=== PATIENT | female | born 1990 | race Caucasian/White ===

== ENCOUNTER 2021-02-06 10:05 | Emergency (ER) | payer OTHER, SELFPAY ==
[~2021-02-06] VITALS: Ht 160 cm; Wt 68.0 kg
[2021-02-06 10:05] VITALS: BP_SYST 103
--- NOTE | 2021-02-06 10:05 | NUR ---
BROUGHT TO TRIAGE TENT, TRIAGED. AWAITING ER BED
--- NOTE | 2021-02-06 10:35 | NUR ---
DR SYED AT BEDSIDE FOR EVALUATION
--- NOTE | 2021-02-06 10:40 | NUR ---
PT STATES SHE TESTED + FOR COVID A FEW DAYS AGO, SEEN LAST NIGHT AT [facility] BUT STATES THEY DID NOTHING BUT GIVE HER LEVAQUIN AND ANTI NAUSEA MEDS. PT STATES SHE IS DEHYDRATED BUT ACTIVELY DRINKING GATORADE. DENIES VOMITING TODAY. PT STATES SHE FEELS WEAK. PT STATES SHE IS NOT VACCINATED, SPOUSE BEING EVALUATED IN ER ALSO.
--- NOTE | 2021-02-06 12:02 | NUR ---
DR SYED OUT TO TRIAGE TENT TO SPEAK WITH PT.
[2021-02-06] MEDS ORDERED: PRED20TA PO (12:12)
[2021-02-06] MEDS ORDERED: DEXAMETHASONE SOD PHOSPHATE 10 MG/ML VIAL IM ONE (12:15)
--- NOTE | 2021-02-06 12:15 | NUR ---
Patient given written and verbal discharge instructions and verbalizes understanding. ER MD discussed with patient the results and treatment provided. Patient in stable condition. ID arm band removed. Rx of given. Patient educated on pain management and to follow up with PMD. Pain Scale0/10 Opportunity for questions provided and answered. Medication side effect fact sheet provided.
--- NOTE | 2021-02-06 12:30 | NUR ---
Patient given written and verbal discharge instructions and verbalizes understanding. Dr. Kimani STOUT MD discussed with patient the results and treatment provided. Patient in stable condition. ID arm band removed. Rx per MD. Patient educated on pain management and to follow up with PMD. Pain Scale 0/10. Opportunity for questions provided and answered. Medication side effect fact sheet provided.
[2021-02-06 12:38] VITALS: BP_SYST 103
== END 2021-02-06 12:30 | disposition home or self-care (01) ==
LOC: SED 10:05
DX: U07.1 COVID-19 (principal); J12.82 Pneumonia due to coronavirus disease 2019
CPT/HCPCS: 71045; 96372; 99283; J1100

== ENCOUNTER 2021-02-08 08:09 | Inpatient (IN) | payer OTHER, SELFPAY ==
[~2021-02-08] VITALS: Ht 160 cm; Wt 74.8 kg
[~2021-02-08 08:09] MED LIST: PRED20TA PO
[2021-02-08 08:26] VITALS: BP_SYST 114
[2021-02-08] MEDS ORDERED: cefTRIAXone 1 GM in D5W 50 ML IV ONE (08:45)
[2021-02-08] MEDS ORDERED: AZITHROMYCIN 500 MG in NS 250 ML IV ONE (08:45)
[2021-02-08] MEDS ORDERED: ACETAMINOPHEN 325 MG TABLET PO ONE (08:45)
[2021-02-08] MEDS ORDERED: ONDANSETRON HCL 4 MG/2 ML VIAL IVP ONE (08:45)
[2021-02-08] MEDS ORDERED: KETOROLAC TROMETHAMINE 30 MG VIAL IVP ONE (08:45)
[2021-02-08] MEDS ORDERED: DEXAMETHASONE SOD PHOSPHATE 10 MG/ML VIAL IVP ONE (08:45)
[2021-02-08] MEDS ORDERED: cefTRIAXone 1 GM VIAL ONE ×2 (08:50→13:03)
[2021-02-08] MEDS ORDERED: AZITHROMYCIN 500 MG/VIAL (ZITHROMAX) IV ONE (08:51)
[2021-02-08 08:54] LABS: BASOPHILS % (AUTO) 0.1 % (0.0-2.0); HEMATOCRIT 41.5 % (36-48); HEMOGLOBIN 14.2 g/dL (12.0-16.0); LYMPHOCYTES # (AUTO) 0.8 K/uL (1.0-5.5); LYMPHOCYTES % (AUTO) 11.2 % (20.5-51.5); MEAN CORPUSCULAR HEMOGLOBIN 30 pg (27-31); MEAN CORPUSCULAR HGB CONC 34 % (32-36); MEAN CORPUSCULAR VOLUME 87 fL (79.0-98.0); MONOCYTES # (AUTO) 0.2 K/uL (0.0-1.0); MONOCYTES % (AUTO) 3.2 % (1.7-9.3); NEUTROPHILS # (AUTO) 5.9 K/uL (1.8-7.7); NEUTROPHILS % (AUTO) 85.5 % (40.0-70.0); PLATELET COUNT (AUTO) 205 K/uL (130-430); WHITE BLOOD COUNT (AUTO) 6.9 K/uL (4.8-10.8)
[2021-02-08 09:03] LABS: CALCIUM 8.6 mg/dL (8.4-11.0); CREATININE 0.76 mg/dL (0.55-1.30); POTASSIUM 3.2 mmol/L (3.5-5.1)
[2021-02-08 09:07] LABS: ALBUMIN 3.2 g/dL (3.4-4.8); C-REACTIVE PROTEIN QUANT 7.6 mg/dL (0-0.5); INR 0.9 (0.8-1.2); PROTHROMBIN TIME 9.4 SECS (9.5-12.5); TOTAL BILIRUBIN 0.4 mg/dL (0.0-1.0)
[2021-02-08] MEDS ORDERED: IPRATROPIUM/ALBUTEROL SULFATE 3 ML AMPUL.NEB (DUONEB) INH PRN (09:45)
[2021-02-08] MEDS ORDERED: ONDANSETRON HCL 4 MG/2 ML VIAL IVP PRN (10:00)
[2021-02-08] MEDS ORDERED: ENOXAPARIN SODIUM 40 MG/0.4 ML SYRINGE SUBCUT ONE (10:00)
[2021-02-08 10:03] LABS: PHOSPHORUS 2.7 mg/dL (2.7-4.5)
[2021-02-08] MEDS ORDERED: IVERMECTIN 3 MG TABLET PO ONE (10:45)
[2021-02-08] MEDS ORDERED: CHOLECALCIFEROL (VITAMIN D3) 5,000 UNIT TABLET PO ONE (10:45)
[2021-02-08] MEDS: cefTRIAXone 1 GM in D5W 50 ML IV SCH (13:02)
[2021-02-08] MEDS ORDERED: ENOXAPARIN SODIUM 40 MG/0.4 ML SYRINGE ONE (13:02)
[2021-02-08] MEDS: DECADRON 4 MG TABLET PO SCH (13:02)
[2021-02-08 14:32] VITALS: BP_SYST 104
[2021-02-08 16:00] VITALS: BP_SYST 110
[2021-02-08 20:00] VITALS: BP_SYST 108
[2021-02-08] MEDS: ASCORBIC ACID 500 MG TABLET PO SCH (20:26)
[2021-02-09] VITALS: BP_SYST 113
[2021-02-09 07:04] LABS: BASOPHILS % (AUTO) 0.1 % (0.0-2.0); HEMOGLOBIN 13.2 g/dL (12.0-16.0); LYMPHOCYTES # (AUTO) 0.5 K/uL (1.0-5.5); LYMPHOCYTES % (AUTO) 7.6 % (20.5-51.5); MEAN CORPUSCULAR HEMOGLOBIN 29 pg (27-31); MEAN CORPUSCULAR HGB CONC 34 % (32-36); MEAN CORPUSCULAR VOLUME 86 fL (79.0-98.0); MONOCYTES # (AUTO) 0.4 K/uL (0.0-1.0); MONOCYTES % (AUTO) 6.4 % (1.7-9.3); NEUTROPHILS # (AUTO) 5.5 K/uL (1.8-7.7); NEUTROPHILS % (AUTO) 85.9 % (40.0-70.0); PLATELET COUNT (AUTO) 201 K/uL (130-430); RED BLOOD CELL COUNT(AUTO) 4.51 MIL/uL (4.2-6.2); RED CELL DISTRIBUTION WIDTH 13.7 % (9.0-15.0); WHITE BLOOD COUNT (AUTO) 6.5 K/uL (4.8-10.8)
[2021-02-09 07:51] LABS: ALBUMIN 2.5 g/dL (3.4-4.8); BILIRUBIN,DIRECT 0.1 mg/dL (0.0-0.3); C-REACTIVE PROTEIN QUANT 9.1 mg/dL (0-0.5); CALCIUM 8.4 mg/dL (8.4-11.0); CREATININE 0.55 mg/dL (0.55-1.30); POTASSIUM 3.7 mmol/L (3.5-5.1); TOTAL BILIRUBIN 0.3 mg/dL (0.0-1.0)
[2021-02-09 08:00] VITALS: BP_SYST 110
[2021-02-09] MEDS: ENOXAPARIN SODIUM 40 MG/0.4 ML SYRINGE SUBCUT SCH (08:23)
[2021-02-09] MEDS: AZITHROMYCIN 250 MG TABLET PO SCH (08:23)
[2021-02-09] MEDS: ASCORBIC ACID 500 MG TABLET PO SCH ×2 (08:23→20:42)
[2021-02-09] MEDS: CHOLECALCIFEROL (VITAMIN D3) 5,000 UNIT TABLET PO SCH (08:23)
[2021-02-09] MEDS: PANTOPRAZOLE SODIUM 40 MG TAB PO SCH (08:23)
[2021-02-09] MEDS ORDERED: AZITHROMYCIN 250 MG TABLET PO SCH (09:00)
[2021-02-09 10:13] LABS: ERYTHROCYTE SEDIMENTATION RATE 33 MM/HR (0-20)
[2021-02-09] MEDS: BENZONATATE 100 MG CAPSULE (TESSALON) PO PRN ×2 (10:54→18:37)
[2021-02-09] MEDS: DECADRON 4 MG TABLET PO SCH (10:55)
[2021-02-09 12:00] VITALS: BP_SYST 115
[2021-02-09 16:00] VITALS: BP_SYST 112
[2021-02-09] MEDS: CYCLOBENZAPRINE HCL 10 MG TABLET (FLEXERIL) PO PRN (18:38)
[2021-02-09 20:00] VITALS: BP_SYST 124
[2021-02-10 00:36] VITALS: BP_SYST 118
[2021-02-10] MEDS: ALBUTEROL MDI INHALATION 8 GM INH INH PRN (06:13)
[2021-02-10 08:13] LABS: BASOPHILS % (AUTO) 0.1 % (0.0-2.0); HEMATOCRIT 39.2 % (36-48); HEMOGLOBIN 13.1 g/dL (12.0-16.0); LYMPHOCYTES # (AUTO) 0.9 K/uL (1.0-5.5); LYMPHOCYTES % (AUTO) 13.6 % (20.5-51.5); MEAN CORPUSCULAR HEMOGLOBIN 29 pg (27-31); MEAN CORPUSCULAR HGB CONC 34 % (32-36); MEAN CORPUSCULAR VOLUME 87 fL (79.0-98.0); MONOCYTES # (AUTO) 0.5 K/uL (0.0-1.0); MONOCYTES % (AUTO) 8.1 % (1.7-9.3); NEUTROPHILS % (AUTO) 78.2 % (40.0-70.0); PLATELET COUNT (AUTO) 232 K/uL (130-430); RED CELL DISTRIBUTION WIDTH 13.7 % (9.0-15.0); WHITE BLOOD COUNT (AUTO) 6.4 K/uL (4.8-10.8)
[2021-02-10 08:30] VITALS: BP_SYST 119
[2021-02-10 08:44] LABS: ALBUMIN 2.4 g/dL (3.4-4.8); C-REACTIVE PROTEIN QUANT 4.5 mg/dL (0-0.5); CALCIUM 8.7 mg/dL (8.4-11.0); CREATININE 0.53 mg/dL (0.55-1.30); POTASSIUM 4.1 mmol/L (3.5-5.1); TOTAL BILIRUBIN 0.3 mg/dL (0.0-1.0)
[2021-02-10] MEDS: CHOLECALCIFEROL (VITAMIN D3) 5,000 UNIT TABLET PO SCH (09:17)
[2021-02-10] MEDS: AZITHROMYCIN 250 MG TABLET PO SCH (09:17)
[2021-02-10] MEDS: PANTOPRAZOLE SODIUM 40 MG TAB PO SCH (09:17)
[2021-02-10] MEDS: ASCORBIC ACID 500 MG TABLET PO SCH ×2 (09:17→22:29)
[2021-02-10] MEDS: ENOXAPARIN SODIUM 40 MG/0.4 ML SYRINGE SUBCUT SCH (09:39)
[2021-02-10] MEDS: DECADRON 4 MG TABLET PO SCH (10:00)
[2021-02-10] MEDS: cefTRIAXone 1 GM in D5W 50 ML IV SCH (10:01)
[2021-02-10 10:31] LABS: ERYTHROCYTE SEDIMENTATION RATE 33 MM/HR (0-20)
[2021-02-10] MEDS: ACETAMINOPHEN 325 MG TABLET PO PRN (13:07)
[2021-02-10 16:19] VITALS: BP_SYST 125
[2021-02-10] MEDS: CYCLOBENZAPRINE HCL 10 MG TABLET (FLEXERIL) PO PRN (18:01)
[2021-02-10 20:00] VITALS: BP_SYST 127
[2021-02-11 00:19] VITALS: BP_SYST 123
[2021-02-11 07:09] LABS: BASOPHILS % (AUTO) 0.2 % (0.0-2.0); EOSINOPHILS % (AUTO) 0.1 % (0.0-4.0); HEMOGLOBIN 13.5 g/dL (12.0-16.0); LYMPHOCYTES % (AUTO) 14.8 % (20.5-51.5); MEAN CORPUSCULAR HEMOGLOBIN 29 pg (27-31); MEAN CORPUSCULAR HGB CONC 34 % (32-36); MEAN CORPUSCULAR VOLUME 87 fL (79.0-98.0); MONOCYTES # (AUTO) 0.6 K/uL (0.0-1.0); MONOCYTES % (AUTO) 9.5 % (1.7-9.3); NEUTROPHILS # (AUTO) 4.9 K/uL (1.8-7.7); NEUTROPHILS % (AUTO) 75.4 % (40.0-70.0); PLATELET COUNT (AUTO) 286 K/uL (130-430); RED BLOOD CELL COUNT(AUTO) 4.61 MIL/uL (4.2-6.2); RED CELL DISTRIBUTION WIDTH 13.7 % (9.0-15.0); WHITE BLOOD COUNT (AUTO) 6.6 K/uL (4.8-10.8)
[2021-02-11 07:41] LABS: ALBUMIN 2.3 g/dL (3.4-4.8); C-REACTIVE PROTEIN QUANT 2.7 mg/dL (0-0.5); CALCIUM 8.3 mg/dL (8.4-11.0); CREATININE 0.59 mg/dL (0.55-1.30); POTASSIUM 3.6 mmol/L (3.5-5.1); TOTAL BILIRUBIN 0.3 mg/dL (0.0-1.0)
[2021-02-11 08:00] VITALS: BP_SYST 105
[2021-02-11] MEDS: ENOXAPARIN SODIUM 40 MG/0.4 ML SYRINGE SUBCUT SCH (08:45)
[2021-02-11] MEDS: CHOLECALCIFEROL (VITAMIN D3) 5,000 UNIT TABLET PO SCH (08:48)
[2021-02-11] MEDS: ASCORBIC ACID 500 MG TABLET PO SCH ×2 (08:49→20:07)
[2021-02-11] MEDS: ACETAMINOPHEN 325 MG TABLET PO PRN ×2 (08:50→18:26)
[2021-02-11] MEDS: AZITHROMYCIN 250 MG TABLET PO SCH (08:50)
[2021-02-11] MEDS: PANTOPRAZOLE SODIUM 40 MG TAB PO SCH (08:50)
[2021-02-11 11:44] LABS: ERYTHROCYTE SEDIMENTATION RATE 28 MM/HR (0-20)
[2021-02-11 12:00] VITALS: BP_SYST 110
[2021-02-11] MEDS: DECADRON 4 MG TABLET PO SCH (12:07)
[2021-02-11] MEDS: cefTRIAXone 1 GM in D5W 50 ML IV SCH (12:07)
[2021-02-11 16:00] VITALS: BP_SYST 107
[2021-02-11 20:00] VITALS: BP_SYST 105
[2021-02-12] VITALS (7 sets, daily range): BP systolic 104–117
[2021-02-12 07:11] LABS: BASOPHILS % (AUTO) 0.1 % (0.0-2.0); EOSINOPHILS % (AUTO) 0.2 % (0.0-4.0); HEMATOCRIT 39.9 % (36-48); HEMOGLOBIN 13.8 g/dL (12.0-16.0); LYMPHOCYTES # (AUTO) 1.1 K/uL (1.0-5.5); LYMPHOCYTES % (AUTO) 15.8 % (20.5-51.5); MEAN CORPUSCULAR HEMOGLOBIN 30 pg (27-31); MEAN CORPUSCULAR HGB CONC 35 % (32-36); MEAN CORPUSCULAR VOLUME 86 fL (79.0-98.0); MONOCYTES # (AUTO) 0.8 K/uL (0.0-1.0); MONOCYTES % (AUTO) 11.8 % (1.7-9.3); NEUTROPHILS # (AUTO) 4.8 K/uL (1.8-7.7); NEUTROPHILS % (AUTO) 72.1 % (40.0-70.0); PLATELET COUNT (AUTO) 302 K/uL (130-430); RED BLOOD CELL COUNT(AUTO) 4.64 MIL/uL (4.2-6.2); RED CELL DISTRIBUTION WIDTH 13.4 % (9.0-15.0); WHITE BLOOD COUNT (AUTO) 6.7 K/uL (4.8-10.8)
[2021-02-12 07:36] LABS: ALBUMIN 2.3 g/dL (3.4-4.8); CALCIUM 8.4 mg/dL (8.4-11.0); CREATININE 0.64 mg/dL (0.55-1.30); POTASSIUM 3.9 mmol/L (3.5-5.1); TOTAL BILIRUBIN 0.3 mg/dL (0.0-1.0)
[2021-02-12] MEDS: ALBUTEROL MDI INHALATION 8 GM INH INH PRN (08:05)
[2021-02-12] MEDS: PANTOPRAZOLE SODIUM 40 MG TAB PO SCH (08:23)
[2021-02-12] MEDS: AZITHROMYCIN 250 MG TABLET PO SCH (08:23)
[2021-02-12] MEDS: CHOLECALCIFEROL (VITAMIN D3) 5,000 UNIT TABLET PO SCH (08:23)
[2021-02-12] MEDS: ASCORBIC ACID 500 MG TABLET PO SCH ×2 (08:23→21:00)
[2021-02-12] MEDS: ENOXAPARIN SODIUM 40 MG/0.4 ML SYRINGE SUBCUT SCH (08:28)
[2021-02-12] MEDS: ACETAMINOPHEN 325 MG TABLET PO PRN ×3 (08:32→21:01)
[2021-02-12] MEDS: cefTRIAXone 1 GM in D5W 50 ML IV SCH (10:15)
[2021-02-12] MEDS: DECADRON 4 MG TABLET PO SCH (10:16)
[2021-02-12] MEDS: BARICITINIB -Non-Formulary 2 MG TABLET PO SCH (13:06)
[2021-02-13] VITALS: BP_SYST 125
[2021-02-13] MEDS: ACETAMINOPHEN 325 MG TABLET PO PRN ×4 (07:00→20:44)
[2021-02-13 07:04] LABS: BASOPHILS % (AUTO) 0.1 % (0.0-2.0); EOSINOPHILS % (AUTO) 0.3 % (0.0-4.0); HEMATOCRIT 39.5 % (36-48); HEMOGLOBIN 13.6 g/dL (12.0-16.0); LYMPHOCYTES # (AUTO) 1.2 K/uL (1.0-5.5); LYMPHOCYTES % (AUTO) 14.5 % (20.5-51.5); MEAN CORPUSCULAR HEMOGLOBIN 30 pg (27-31); MEAN CORPUSCULAR HGB CONC 35 % (32-36); MEAN CORPUSCULAR VOLUME 86 fL (79.0-98.0); MONOCYTES # (AUTO) 0.8 K/uL (0.0-1.0); MONOCYTES % (AUTO) 9.2 % (1.7-9.3); NEUTROPHILS # (AUTO) 6.2 K/uL (1.8-7.7); NEUTROPHILS % (AUTO) 75.9 % (40.0-70.0); PLATELET COUNT (AUTO) 343 K/uL (130-430); RED BLOOD CELL COUNT(AUTO) 4.62 MIL/uL (4.2-6.2); RED CELL DISTRIBUTION WIDTH 13.1 % (9.0-15.0); WHITE BLOOD COUNT (AUTO) 8.2 K/uL (4.8-10.8)
[2021-02-13 07:24] LABS: ALBUMIN 2.4 g/dL (3.4-4.8); C-REACTIVE PROTEIN QUANT 3.6 mg/dL (0-0.5); CALCIUM 8.5 mg/dL (8.4-11.0); CREATININE 0.47 mg/dL (0.55-1.30); TOTAL BILIRUBIN 0.4 mg/dL (0.0-1.0)
[2021-02-13 08:00] VITALS: BP_SYST 94
[2021-02-13] MEDS: PANTOPRAZOLE SODIUM 40 MG TAB PO SCH (09:24)
[2021-02-13] MEDS: ASCORBIC ACID 500 MG TABLET PO SCH ×2 (09:24→20:43)
[2021-02-13] MEDS: AZITHROMYCIN 250 MG TABLET PO SCH (09:24)
[2021-02-13] MEDS: ENOXAPARIN SODIUM 40 MG/0.4 ML SYRINGE SUBCUT SCH (09:25)
[2021-02-13] MEDS: NACL 0.9% 1,000 ML IV SCH ×2 (09:26→20:44)
[2021-02-13] MEDS: BARICITINIB -Non-Formulary 2 MG TABLET PO SCH (09:34)
[2021-02-13] MEDS: CHOLECALCIFEROL (VITAMIN D3) 5,000 UNIT TABLET PO SCH (09:34)
[2021-02-13 10:19] LABS: ERYTHROCYTE SEDIMENTATION RATE 28 MM/HR (0-20)
[2021-02-13] MEDS: cefTRIAXone 1 GM in D5W 50 ML IV SCH (10:45)
[2021-02-13] MEDS: DECADRON 4 MG TABLET PO SCH (10:45)
[2021-02-13 12:00] VITALS: BP_SYST 90
[2021-02-13 17:13] VITALS: BP_SYST 120
[2021-02-13 20:00] VITALS: BP_SYST 109
[2021-02-13 23:52] VITALS: BP_SYST 109
[2021-02-14] VITALS: BP_SYST 110
[2021-02-14] MEDS: NACL 0.9% 1,000 ML IV SCH ×3 (05:15→21:21)
[2021-02-14] MEDS: ACETAMINOPHEN 325 MG TABLET PO PRN ×3 (06:24→21:20)
[2021-02-14 07:00] LABS: BASOPHILS % (AUTO) 0.1 % (0.0-2.0); EOSINOPHILS % (AUTO) 0.4 % (0.0-4.0); HEMATOCRIT 40.2 % (36-48); HEMOGLOBIN 13.8 g/dL (12.0-16.0); LYMPHOCYTES # (AUTO) 1.5 K/uL (1.0-5.5); LYMPHOCYTES % (AUTO) 14.8 % (20.5-51.5); MEAN CORPUSCULAR HEMOGLOBIN 30 pg (27-31); MEAN CORPUSCULAR HGB CONC 34 % (32-36); MEAN CORPUSCULAR VOLUME 87 fL (79.0-98.0); MONOCYTES # (AUTO) 0.8 K/uL (0.0-1.0); MONOCYTES % (AUTO) 8.1 % (1.7-9.3); NEUTROPHILS # (AUTO) 7.9 K/uL (1.8-7.7); NEUTROPHILS % (AUTO) 76.6 % (40.0-70.0); PLATELET COUNT (AUTO) 409 K/uL (130-430); RED BLOOD CELL COUNT(AUTO) 4.61 MIL/uL (4.2-6.2); RED CELL DISTRIBUTION WIDTH 13.1 % (9.0-15.0); WHITE BLOOD COUNT (AUTO) 10.3 K/uL (4.8-10.8)
[2021-02-14 07:53] LABS: CALCIUM 8.6 mg/dL (8.4-11.0); CREATININE 0.51 mg/dL (0.55-1.30); POTASSIUM 3.9 mmol/L (3.5-5.1)
[2021-02-14 08:00] VITALS: BP_SYST 103
[2021-02-14] MEDS ORDERED: DEXA6TAB5 PO (09:18)
[2021-02-14] MEDS ORDERED: APIX2.5T PO (09:18)
[2021-02-14] MEDS: PANTOPRAZOLE SODIUM 40 MG TAB PO SCH (09:28)
[2021-02-14] MEDS: ASCORBIC ACID 500 MG TABLET PO SCH ×2 (09:28→21:19)
[2021-02-14] MEDS: CHOLECALCIFEROL (VITAMIN D3) 5,000 UNIT TABLET PO SCH (09:28)
[2021-02-14] MEDS: ENOXAPARIN SODIUM 40 MG/0.4 ML SYRINGE SUBCUT SCH (09:29)
[2021-02-14] MEDS: BARICITINIB -Non-Formulary 2 MG TABLET PO SCH (09:35)
[2021-02-14] MEDS: DECADRON 4 MG TABLET PO SCH (11:47)
[2021-02-14] MEDS: cefTRIAXone 1 GM in D5W 50 ML IV SCH (11:48)
[2021-02-14 12:00] VITALS: BP_SYST 98
[2021-02-14 16:00] VITALS: BP_SYST 131
[2021-02-14 20:00] VITALS: BP_SYST 100
[2021-02-14] MEDS: CYCLOBENZAPRINE HCL 10 MG TABLET (FLEXERIL) PO PRN (21:19)
[2021-02-14] MEDS: BENZONATATE 100 MG CAPSULE (TESSALON) PO PRN (21:19)
[2021-02-15] VITALS: BP_SYST 110
[2021-02-15 06:31] LABS: BASOPHILS % (AUTO) 0.2 % (0.0-2.0); EOSINOPHILS % (AUTO) 0.2 % (0.0-4.0); HEMATOCRIT 40.2 % (36-48); HEMOGLOBIN 13.7 g/dL (12.0-16.0); LYMPHOCYTES # (AUTO) 1.2 K/uL (1.0-5.5); LYMPHOCYTES % (AUTO) 12.7 % (20.5-51.5); MEAN CORPUSCULAR HEMOGLOBIN 30 pg (27-31); MEAN CORPUSCULAR HGB CONC 34 % (32-36); MEAN CORPUSCULAR VOLUME 86 fL (79.0-98.0); MONOCYTES # (AUTO) 0.7 K/uL (0.0-1.0); MONOCYTES % (AUTO) 7.6 % (1.7-9.3); NEUTROPHILS # (AUTO) 7.6 K/uL (1.8-7.7); NEUTROPHILS % (AUTO) 79.3 % (40.0-70.0); PLATELET COUNT (AUTO) 408 K/uL (130-430); RED BLOOD CELL COUNT(AUTO) 4.65 MIL/uL (4.2-6.2); RED CELL DISTRIBUTION WIDTH 13.3 % (9.0-15.0); WHITE BLOOD COUNT (AUTO) 9.5 K/uL (4.8-10.8)
[2021-02-15 06:38] LABS: CALCIUM 8.3 mg/dL (8.4-11.0); CREATININE 0.46 mg/dL (0.55-1.30); POTASSIUM 4.2 mmol/L (3.5-5.1)
[2021-02-15] MEDS: ENOXAPARIN SODIUM 40 MG/0.4 ML SYRINGE SUBCUT SCH (08:12)
[2021-02-15] MEDS: PANTOPRAZOLE SODIUM 40 MG TAB PO SCH (08:12)
[2021-02-15] MEDS: CHOLECALCIFEROL (VITAMIN D3) 5,000 UNIT TABLET PO SCH (08:12)
[2021-02-15] MEDS: ASCORBIC ACID 500 MG TABLET PO SCH ×2 (08:12→20:27)
[2021-02-15] MEDS: BARICITINIB -Non-Formulary 2 MG TABLET PO SCH (08:14)
[2021-02-15] MEDS: BENZONATATE 100 MG CAPSULE (TESSALON) PO PRN (08:16)
[2021-02-15 08:28] VITALS: BP_SYST 113
[2021-02-15] MEDS: DECADRON 4 MG TABLET PO SCH (11:49)
[2021-02-15] MEDS: NACL 0.9% 1,000 ML IV SCH ×2 (11:49→22:25)
[2021-02-15] MEDS: cefTRIAXone 1 GM in D5W 50 ML IV SCH (11:49)
[2021-02-15 12:03] VITALS: BP_SYST 114
[2021-02-15 16:46] VITALS: BP_SYST 110
[2021-02-15] MEDS: ACETAMINOPHEN 325 MG TABLET PO PRN (16:50)
[2021-02-15 16:55] VITALS: BP_SYST 110
[2021-02-15 20:00] VITALS: BP_SYST 122
[2021-02-16] VITALS: BP_SYST 116
[2021-02-16] MEDS: NACL 0.9% 1,000 ML IV SCH (07:04)
[2021-02-16 08:02] VITALS: BP_SYST 126
[2021-02-16] MEDS: BENZONATATE 100 MG CAPSULE (TESSALON) PO PRN (08:05)
[2021-02-16] MEDS: PANTOPRAZOLE SODIUM 40 MG TAB PO SCH (08:06)
[2021-02-16] MEDS: ASCORBIC ACID 500 MG TABLET PO SCH (08:06)
[2021-02-16] MEDS: CHOLECALCIFEROL (VITAMIN D3) 5,000 UNIT TABLET PO SCH (08:06)
[2021-02-16] MEDS: ENOXAPARIN SODIUM 40 MG/0.4 ML SYRINGE SUBCUT SCH (08:07)
[2021-02-16] MEDS: BARICITINIB -Non-Formulary 2 MG TABLET PO SCH (08:08)
[2021-02-16] MEDS ORDERED: ALBMDI INH (10:04)
[2021-02-16] MEDS ORDERED: BENZ100C92 PO (10:04)
[2021-02-16] MEDS: DECADRON 4 MG TABLET PO SCH (10:05)
[2021-02-16] MEDS: cefTRIAXone 1 GM in D5W 50 ML IV SCH (10:05)
[2021-02-16 10:33] VITALS: BP_SYST 116
[2021-02-16 12:00] VITALS: BP_SYST 143
[2021-02-16 15:34] VITALS: BP_SYST 116
== END 2021-02-16 18:10 | disposition home or self-care (01) | DRG 177 ==
LOC: SED 08:09 → STU 09:39
PROVIDERS: ADMIT Hospitalist; ATTEND Hospitalist
PROC: XW033E5 Introduction of Remdesivir Anti-infective into Peripheral Vein, Percutaneous Approach, New Technology Group 5 (ICD-10-PCS; principal; 2021-02-09)
DX: U07.1 COVID-19 (principal); J12.82 Pneumonia due to coronavirus disease 2019; J96.01 Acute respiratory failure with hypoxia; E43 Unspecified severe protein-calorie malnutrition; E66.9 Obesity, unspecified; E87.6 Hypokalemia; R74.01 Elevation of levels of liver transaminase levels; Z79.899 Other long term (current) drug therapy; Z68.29 Body mass index [BMI] 29.0-29.9, adult; Z82.5 Family history of asthma and other chronic lower respiratory diseases
CPT/HCPCS: 36415; 71045; 71250-TC; 76376; 80048; 80053; 82248; 82550; 82728; 82803-TC; 83036; 83605; 83615; 83735; 83880; 84100; 84484; 85025; 85379; 85384; 85610-TC; 85651-TC; 85730-TC; 86140; 86886; 86900; 86901; 87040-TC; 93005; 94640; 94760; 96365; 96368; 96372; 96375; 99291; G0378; J0456; J0696; J1100; J1650; J1885; J2405; J7050; J7060; J8540; Q0144; U0003